=== PATIENT | female | born 1945 | race Caucasian/White ===

== ENCOUNTER 2017-01-25 10:41 | Inpatient (IN) ==
--- NOTE | 2017-01-25 11:10 | Anesthesia Evaluation PreOp ---
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) Anesthesia History: No Prior Anesthetic Complications, Past Anesthesia (Right TSA and TKA, left EDIN, right CEA, Left subclavian BPG, catatacts) : No Alcohol Use: heavy Drug use: none, other Medications and Allergies Albuterol Sulfate [Albuterol Inhaler] 2 puff IH Q4HR PRN 01/14/15 [History] Aspirin 81 mg PO DAILY 01/14/15 [History] BuPROPion XL (24 HR) [Wellbutrin Xl] 150 mg PO DAILY 01/14/15 [History] Clopidogrel [Plavix] 75 mg PO DAILY 01/14/15 [History] Gabapentin [Neurontin] 800 mg PO QPM 01/14/15 [History] Montelukast [Singulair] 10 mg PO DAILY 01/14/15 [History] Nitroglycerin 0.4 mg SL Q5MIN PRN 01/14/15 [History] Oxygen 2 l NS HS 01/14/15 [History] Paroxetine [Paxil] 40 mg PO DAILY 01/14/15 [History] Cholecalciferol (Vitamin D3) [Vitamin D3] 5,000 unit PO DAILY 09/09/15 [History] Atorvastatin Calcium [Lipitor] 80 mg PO DAILY 10/07/15 [History] Calcium/Magnesium/Vit D3 [Calcium 500 mg Tablet] 1 each PO DAILY 10/07/15 [ History] Folic Acid 0.8 mg PO DAILY 10/07/15 [History] Metoprolol [Lopressor] 25 mg PO BID 10/07/15 [History] Oxybutynin [Ditropan] 5 mg PO BID 10/07/15 [History] Vitamin E Acid Succinate [Vitamin E] 400 units PO DAILY 10/07/15 [History] Acetaminophen [Tylenol] 1,000 mg PO Q6HR PRN #90 tablet 12/27/16 [Rx] Meloxicam [Meloxicam] 15 mg PO DAILY 01/11/17 [History] Tiotropium [Spiriva] 1 puff IH DAILY 01/11/17 [History] Varenicline Tartrate [Chantix] 1 mg PO BID 01/11/17 [History] Fluticasone/Salmeterol [Advair 500-50 Diskus] 1 puff IH BID 01/25/17 [History] 3 Allergy/AdvReac Type Severity Reaction Status Date / Time No Known Allergies Allergy Verified 01/11/17 07:40 - Meds/Allergy Pre-op Review Medications Reviewed: Yes Allergies Reviewed: Yes Beta Blockers on Current Med List: Yes If Beta Blockers taken, Date/Time (Last Dose taken): yesterday 1400 Anesthesia Results - Labs Laboratory Tests 12/25/16 12/25/16 12/25/16 18:20 18:20 18:20 Hgb 14.8 Hct 43.4 Plt Count 286 PT 11.0 INR 1.0 APTT 28.1 Sodium 134 L Potassium 4.3 BUN 17 Creatinine 0.75 - Imaging EKG: report reviewed (SINUS BRADYCARDIA LEFT VENTRICULAR HYPERTROPHY AND ST-T CHANGE) Additional studies: carotid studies:The right carotid artery has minimal plaque throughout. The left internal carotid artery has a 80-99% stenosis. Anesthesia Exam Selected Entries 01/25/17 11:17 Temperature 97.6 F Pulse Rate 84 Respiratory Rate 18 Blood Pressure 116/77 O2 Sat by Pulse Oximetry 95 Weight: 73kg NPO (# of Hours): 8 Pain Scale: 4 Pain Scale Used: Numeric (1 - 10) - HEENT Pupil (Motor): EOMI Mallampati: II Teeth: Edentulous Oral Opening: Greater than 3 - OCCUPATIONAL THERAPY CO DIRECTOR LOC: Oriented OCCUPATIONAL THERAPY CO DIRECTOR Motor: Normal RUE, Normal LUE, Normal RLE, Normal LLE, Normal Face OCCUPATIONAL THERAPY CO DIRECTOR Sensory: Normal: RUE, LUE, RLE, LLE, Face - Cardiac Rhythm: Regular Murmur: None - Pulmonary Breath Sounds: bilateral Clear Respiratory Effort: Symmetrical Anesthesia Assess/Plan ASA Score: 3 Modified Avery Scale for Level of Consciousness: Cooperative, oriented, and tranquil Anesthetic Plan: General Autologous Blood: Yes Monitoring Plan: Standard Monitors, A-Line (possible) Recovery Plan: PACU (Discussed risks of GA, potential need for a-line. Questions answered and agrees to proceed.)
[2017-01-25] MEDS ORDERED: Lidocaine -MPF 1% 2 ML VIAL ID ONE (11:14)
[2017-01-25] MEDS ORDERED: CeFAZolin Pre 2,000 MG/100 ML 2,000 MG/100 ML BAG IVPB ONE (11:14)
[2017-01-25] MEDS ORDERED: Vancomycin 1,000 MG in D5% in Water 250 ML IVPB ONE ×2 (11:14→23:00)
[2017-01-25] MEDS ORDERED: Albuterol 2.5 MG/3 ML NEBULIZER IH ONE (11:17)
[2017-01-25] MEDS ORDERED: Ringers Solution, Lactated 1,000 ML IVC SCH (11:30)
--- NOTE | 2017-01-25 11:47 | History & Physical Report ---
Date of Encounter: 01/25/17 Time of Encounter: 11:40 24 Hour HP Update - Instructions Instructions: If the History and Physical is less than 30 days old and was completed prior to A.M. admission and or procedure and has NOT been updated on calendar day of procedure please complete this update prior to performing procedure. - Update Patient reports changes in Medical Condition: No Changes in examination, assessment, or condition: No Changes in Medication: No Preop tests/diagnostics Reviewed: Yes Surgery Remains Indicated: Yes Consent for Planned Operative Procedure(s) Verified: Yes - Pre-Operative Checklist Preoperative Checklist Indicated: Yes Prophylactic Antibiotic Ordered: Yes (Vancomycin due to MRSA risk) Home Medications Include Beta Ham: Yes Beta Ham Taken Today (Day of Surgery): Yes Beta Ham Taken Yesterday (Day Prior to Surgery): Yes Is VTE Prophylaxis Indicated?: Yes
[2017-01-25] MEDS ORDERED: Ondansetron 4 MG/2 ML VIAL IVP ONE (13:13)
[2017-01-25] MEDS ORDERED: *HR* Morphine 2 MG/ML SYRINGE IVP PRN ×2 (13:13→16:21)
[2017-01-25] MEDS ORDERED: *HR* Rocuronium Bromide 50 MG/5 ML VIAL ONE (13:38)
[2017-01-25] MEDS ORDERED: EPHEDrine 50 MG/ML VIAL ONE (13:38)
[2017-01-25] MEDS ORDERED: Lidocaine -MPF 4% 5 ML AMPUL ONE (13:38)
[2017-01-25] MEDS ORDERED: Ondansetron 4 MG/2 ML VIAL ONE (13:38)
[2017-01-25] MEDS ORDERED: *HR* Succinylcholine 200 MG/10 ML VIAL IVP ONE (13:38)
[2017-01-25] MEDS ORDERED: *HR* Phenylephrine 10 MG/ML VIAL ONE (13:38)
[2017-01-25] MEDS ORDERED: Dexamethasone 4 MG/ML VIAL ONE (13:38)
[2017-01-25] MEDS ORDERED: Lidocaine -MPF 2% 2 ML VIAL ONE (13:38)
[2017-01-25] MEDS ORDERED: *HR* FentaNYL (PF) 100 MCG/2 ML VIAL ONE (13:39)
[2017-01-25] MEDS ORDERED: *HR* Propofol 200 MG/20 ML VIAL IVP ONE (13:39)
[2017-01-25] MEDS ORDERED: Heparin 1,000 UNITS/500 mL NS 500 ML ONE (14:34)
[2017-01-25] MEDS ORDERED: Ipratropium/Albuterol Neb 3 ML ONE (14:40)
[2017-01-25] MEDS ORDERED: Ipratropium/Albuterol Neb 3 ML IH ONE (14:43)
--- NOTE | 2017-01-25 15:02 | Operative Note ---
Date of procedure: 01/25/17 Pre-op diagnosis: Peripheral vascular disease Post-op diagnosis: same Procedure: 1. Angiogram via right common femoral artery. 2. Right common iliac artery 7 x 27mm stent placement. 3. Right common femoral artery endarterectomy with bovine pericardial patch angioplasty. 4. Right deep femoral artery endarterectomy. Anesthesia: GETA Surgeon: Aroldo Puri Estimated blood loss (cc): 100 Specimen: right lower extremity plaque Condition: stable Disposition: PACU Procedure in Detail: Indications: The patient is a 71 year old female with a history of peripheral vascular disease with severe disabling claudication.. She was found to have severe right iliac and femoral artery disease. Procedure: The patient was identified in the preoperative area. The risks, benefits, and alternatives of procedure were discussed and all questions were answered. She was taken to the operating room and placed in supine position on the operating room table. After the induction of general endotracheal anesthesia, she was cleaned and draped in normal sterile fashion. An oblique incision was made in the right groin sharply. Hemostasis was obtained with electrocautery. Through a process of blunt and sharp electrocautery dissection , the skin and subcutaneous tissues were incised and the right distal iliac, common femoral, deep femoral and superficial femoral arteries were dissected cicumferentially and surrounded with vessel loops. The patient received 5000 units of heparin intravenously and additional heparin throughout the case to maintain adequate anticoagulation. The vessels were occluded by applying tension to the vessel loops. A longitudinal ateriotomy was made into the common femoral artery. It was extended proximally into the right external iliac artery. A wire was advanced along the plaque proximally into the the right external iliac artery. A 6 kiswahili sheath was advanced over the wire. Using a berenstain catheter, the wire was advanced through the right common iliac artery and into the aorta. The catheter was advanced into the aorta and the wire was removed. An angiogram revealed that the right extrenal iliac lesion had been crossed and the catheter was within the aortic lumen. Additional images were obtained for stent sizing. The catheter was removed and a 7 x 27mm stent was advanced over the wire and deployed across the common iliac artery lesion. A completion angiogram revealed no residual stenosis. The wire and sheath were removed and the vessel was flushed. A strong pulse was noted proximally, but the plaque obstructed flow. Using a dental [place], a standard endarterectomy was performed along the common femoral artery. Release of the deep femoral vessel loop revealed signficant stenosis in the proximal deep femoral artery with minimal retrograde flow. An endarterectomy of the proximal deep femoral artery was perforemd with a dental freer. Proximal and distal endpoints were inspected. No elevated flaps were noted. Brisk retrograde flow was then noted from the deep femoral artery. A bovine pericardial patch was cut to fit the arterial defect and sutured in place with running 6-0 Prolene. Prior to completing the patch anastomosis, each vessel was flushed individually, then reoccluded. Heparinized saline was infused into the lumen. The patch was completed and flow was restored. A firm right inguinal lymph node was excised and sent to pathology. Thrombin and Gelfoam were used to aid in hemostasis. Polyphasic signal was noted distal to the distal end of the patch as well as the posterior tibial artery. Wound was irrigated with antibiotic-containing saline. Platelet-rich and platelet-poor plasma were infused into the wound. The wounds were reapproximated with layer of 2-0 Vicryl followed by two layers of 3-0 and Vicryl 3-0 Monocryl in the subcuticular layer. Sterile dressings were applied. The patient was extubated, taken to recovery room in stable condition.
--- NOTE | 2017-01-25 15:11 | Anesthesia Evaluation Post Op ---
Date of Encounter: 01/25/17 Time of Encounter: 15:10 - Vital Signs Vital Signs: Selected Entries 01/25/17 14:29 01/25/17 14:49 Temperature 97.1 F L Pulse Rate 93 Respiratory Rate 17 Blood Pressure 100/83 O2 Sat by Pulse Oximetry 93 Oxygen Flow Rate (LPM) 2 - Lungs Lungs: Wheezes, Treatment Ordered (Improved with duoneb therapy) - Airway Airway: Non-obstructed - Cardiovascular Regular Rate - Mental Status Mental Status: Alert & Oriented, Answers Appropriately - Nausea Vomiting Nausea Vomiting: Not Present - Hydration Hydration: NPO - Discharge PostOp Status: Transfer Patient to floor
[2017-01-25] MEDS ORDERED: *HR* HYDROcodone/Acet 5/325 mg TABLET PO PRN (16:21)
[2017-01-25] MEDS ORDERED: Acetaminophen 325 MG TABLET PO PRN (16:21)
[2017-01-25] MEDS ORDERED: Nitroglycerin 0.4 MG TAB.SUBL SL PRN (16:21)
[2017-01-25] MEDS ORDERED: *HR* Labetalol 20 MG/4 ML SYRINGE IVP PRN (16:21)
[2017-01-25] MEDS ORDERED: Naloxone 0.4 MG/ML INJ IVP PRN (16:21)
[2017-01-25] MEDS ORDERED: Ondansetron 4 MG/2 ML VIAL IVP PRN (16:21)
[2017-01-25] MEDS ORDERED: *HR* OxyCODONE Immed Rel 5 MG TABLET PO PRN (16:21)
[2017-01-25] MEDS ORDERED: 0.9 % Sodium Chloride 500 ML IVC ONE (16:22)
[2017-01-25] MEDS ORDERED: 0.9 % Sodium Chloride 1,000 ML IVC SCH (16:30)
[2017-01-25] MEDS ORDERED: 0.9 % Sodium Chloride 500 ML ONE (16:30)
[2017-01-25] MEDS: *HR* Metoprolol 5 MG/5 ML VIAL IVP SCH (17:36)
[2017-01-25] MEDS ORDERED: Gabapentin 400 MG CAPSULE PO SCH (18:00)
[2017-01-25] MEDS ORDERED: *HR* Heparin 5,000 UNIT/ML VIAL SQ SCH (18:00)
[2017-01-25] MEDS: ceFAZolin 2,000 MG in D5% in Water 100 ML IVPB SCH (18:28)
[2017-01-25] MEDS: Budesonide/Formoterol 160/4.5 MDI IH SCH (22:28)
[2017-01-26] MEDS: *HR* Metoprolol 5 MG/5 ML VIAL IVP SCH ×2 (00:29→06:12)
[2017-01-26] MEDS: ceFAZolin 2,000 MG in D5% in Water 100 ML IVPB SCH (03:53)
[2017-01-26 05:13] LABS: Basophils % 0.2 %; Eosinophils % 0.1 %; Hematocrit 31.1 % (35.3-44.9); Hemoglobin 10.1 g/dL (11.5-15.4); Immature Granulocytes % 0.7 % (0-4); Lymphocytes # 0.8 K/mcL (0.6-4.6); Lymphocytes % 7.6 %; Mean Corpuscular HGB Conc 32.5 g/dL (31.6-35.5); Mean Corpuscular Volume 95.4 fL (83.0-100.0); Mean Platelet Volume 9.1 fL (9.4-12.4); Monocytes # 0.5 K/mcL (0.0-1.3); Monocytes % 4.8 %; Neutrophils # 8.7 K/mcL (1.6-8.9); Platelet Count 237 K/mcL (140-400); Red Blood Count 3.26 M/mcL (3.82-4.97); Red Cell Distribution Width 13.2 % (11.5-14.5); Segmented Neutrophils % 86.6 %
[2017-01-26 05:24] LABS: BUN/Creatinine Ratio 19 (6-26); Blood Urea Nitrogen 14 mg/dL (7-20); Calcium 8.4 mg/dL (8.6-10.8); Carbon Dioxide 25 mEq/L (19-29); Chloride 102 mEq/L (98-109); Glucose 126 mg/dL (70-99); Osmolality,Calculated 284 (280-300); Potassium 4.7 mEq/L (3.5-4.5); Sodium 136 mEq/L (136-145); eGFR For African Americans > 60 (> 60); eGFR For Non-African Americans > 60 (> 60)
[2017-01-26] MEDS ORDERED: *HR* Heparin 5,000 UNIT/ML VIAL SQ SCH (06:00)
--- NOTE | 2017-01-26 06:24 | Discharge Summary ---
Date of Encounter: 01/26/17 Time of Encounter: 07:20 - Discharge Diagnosis (1) Atheroscler of [place] artery of both legs with intermit claudication Priority: Primary Status: Chronic Comments: The patient is postoperative day #1 after a right iliac stent and femoral endarterectomy. She reports that she is feeling much better and her claudication has resolved. She has polyphasic signals. Her wounds is healing. She will be discharged today. (2) Hyperlipidemia Priority: Secondary Status: Chronic Comments: She was counseled regarding atherosclerotic risk factor reduction. Qualifiers: Hyperlipidemia type: mixed hyperlipidemia Qualified Code(s): E78.2 - Mixed hyperlipidemia (3) COPD (chronic obstructive pulmonary disease) Priority: Secondary Status: Chronic Qualifiers: COPD type: COPD with acute exacerbation Qualified Code(s): J44.1 - Chronic obstructive pulmonary disease with (acute) exacerbation (4) Tobacco abuse Priority: Secondary Status: Chronic (5) Aneurysm of infrarenal abdominal aorta Priority: Secondary Status: Chronic (6) Essential hypertension Priority: Secondary Status: Acute (7) Acute blood loss anemia Priority: Secondary Status: Acute Comments: The patient has acute expected postoperative blood loss anemia. She is hemodynamically stable without evidence of ongoing blood loss. - Discharge Medications Prescriptions: OxyCODONE/APAP 5/325 [Percocet 5/325 MG] 1 each PO Q6HR PRN #25 tablet PRN Reason: postoperative pain Home Medications: Albuterol Sulfate [Albuterol Inhaler] 2 puff IH Q4HR PRN 01/14/15 [History] Aspirin 81 mg PO DAILY 01/14/15 [History] BuPROPion XL (24 HR) [Wellbutrin Xl] 150 mg PO DAILY 01/14/15 [History] Clopidogrel [Plavix] 75 mg PO DAILY 01/14/15 [History] Gabapentin [Neurontin] 800 mg PO QPM 01/14/15 [History] Montelukast [Singulair] 10 mg PO DAILY 01/14/15 [History] Nitroglycerin 0.4 mg SL Q5MIN PRN 01/14/15 [History] Oxygen 2 l NS HS 01/14/15 [History] Paroxetine [Paxil] 40 mg PO DAILY 01/14/15 [History] Cholecalciferol (Vitamin D3) [Vitamin D3] 5,000 unit PO DAILY 09/09/15 [History] Atorvastatin Calcium [Lipitor] 80 mg PO DAILY 10/07/15 [History] Calcium/Magnesium/Vit D3 [Calcium 500 mg Tablet] 1 each PO DAILY 10/07/15 [ History] Folic Acid 0.8 mg PO DAILY 10/07/15 [History] Metoprolol [Lopressor] 25 mg PO BID 10/07/15 [History] Oxybutynin [Ditropan] 5 mg PO BID 10/07/15 [History] Vitamin E Acid Succinate [Vitamin E] 400 units PO DAILY 10/07/15 [History] Acetaminophen [Tylenol] 1,000 mg PO Q6HR PRN #90 tablet 12/27/16 [Rx] Meloxicam 15 mg PO DAILY 01/11/17 [History] Tiotropium [Spiriva] 1 puff IH DAILY 01/11/17 [History] Varenicline Tartrate [Chantix] 1 mg PO BID 01/11/17 [History] Fluticasone/Salmeterol [Advair 500-50 Diskus] 1 puff IH BID 01/25/17 [History] OxyCODONE/APAP 5/325 [Percocet 5/325 MG] 1 each PO Q6HR PRN #25 tablet 01/26/17 [Rx] Allergies/Adverse Reactions: 3 Allergy/AdvReac Type Severity Reaction Status Date / Time No Known Allergies Allergy Verified 01/11/17 07:40 Date of admission: 01/25/17 11:48 Primary care physician: Darwin Bolton MD Procedure(s) Performed: Right iliac stent and right femoral endarterectomy. Discharging clinician: Aroldo Puri Anticipated date of discharge: 01/26/17 - Patient Status Disposition: Home, Self-Care Condition: Good Functional capacity at discharge: independent ambulation Overall status at discharge: patient is back to baseline - Discharge Instructions Instructions: Oxycodone/Acetaminophen (By mouth), Peripheral Vascular Stent Placement (DC), Cigarette Smoking and Your Health, Intake Assessor (GEN) Follow Up With: Aroldo Puri MD [Partnered Physician] - 03/12/17 11:00 am Darwin Bolton MD [Primary Care Provider] - 01/30/17 11:30 am Additional Instructions: May remove bandage and shower on 01/27/17. Wash wound gently and pat to dry. Apply dry gauze to wound daily for 7 days. No tub baths or swimming until 02/18/17. Call Dr. Puri at [phone] with questions or concerns. - CONTINUE TO CHECK YOUR HR AND BP AT HOME BEFORE AM MEDS ARE GIVEN. AND FOLLOW PARAMETERS ON HOME DOSE METOPROLOL. - SPLINT RIGHT GROIN WHEN COUGHING, SNEEZING, LAUGHING, STRAINING. - CONTINUE TO USE THE INCENTIVE SPIROMETER 6 TIMES A DAY (10 BREATHS EACH MARCY) TO PREVENT PNEUMONIA. - NO LIFTING MORE THAN 10 POUNDS/ 1 GALLON OF MILK. - LOW FAT LOW SALT LOW CHOLESTEROL DIET IS RECOMMENDED. - Diet and Activity Activity: increase activity as tolerated Diet: advance to your usual diet - Hospital Course Hospital course: Ms. Paz is a 71 year old female with a history of hypertension, hyperlipidemia, tobacco abuse and peripheral vascular disease with disabling claudication. She underwent a right iliac stent and femoral endarterectomy. She tolerated the procedure well and was discharged on postoperative day #1 without complication. Time spent discussing smoking cessation with patient: 3 to 10 minutes - Time Spent with Patient Total time spent providing and/or coordinating discharge services: Exam Vital Signs, Last 4 Hours Temp Pulse Resp BP Pulse Ox 01/26/17 03:35 97.8 F 85 19 85/66 98 General: Present: Conversant, No Apparent Distress HEENT: Present: Pupils equal Cardiac: Present: Reg Rate and Rhythm Lungs: Present: Normal Breath Sounds Neuro: Present: Alert and responsive, No focal deficits noted Abdomen: Present: Soft Vascular: Present: Normal capillary refill, Pulse, normal. Absent: Cyanosis, Edema - VTE Documentation of Mechanical Device: Graduated compression elastic hosiery
[2017-01-26 07:13] VITALS: BP 85/60
[2017-01-26] MEDS: Budesonide/Formoterol 160/4.5 MDI IH SCH (08:17)
[2017-01-26] MEDS ORDERED: Folic Acid 1 MG TABLET PO SCH (09:00)
[2017-01-26] MEDS ORDERED: Tiotropium 18 MCG inhalation IH SCH (09:00)
[2017-01-26] MEDS ORDERED: Cholecalciferol (D-3) 1,000 UNIT TABLET PO SCH (09:00)
[2017-01-26] MEDS ORDERED: BuPROPion XL (24 HR) 150 MG TABLET PO SCH (09:00)
[2017-01-26] MEDS ORDERED: Aspirin 81 MG TAB.CHEW PO SCH (09:00)
== END 2017-01-26 10:17 | disposition home or self-care (01) | DRG 253 ==
LOC: SAMDAY 10:41 → 2NNU 11:48
PROVIDERS: ADMIT Surgery; ATTEND Surgery

== ENCOUNTER 2017-04-06 16:43 | Inpatient (IN) ==
[2017-04-06] MEDS ORDERED: methylPREDNISolone 125 MG/2 ML VIAL IVP ONE (16:57)
[2017-04-06] MEDS ORDERED: Ipratropium/Albuterol Neb 3 ML IH ONE ×2 (16:57→16:59)
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
[2017-04-06] MEDS ORDERED: Levalbuterol Neb 1.25 MG/3 ML IH ONE (17:12)
[2017-04-06 17:18] LABS: Basophils # 0.1 K/mcL (0.0-0.2); Basophils % 0.5 %; Eosinophils # 0.1 K/mcL (0.0-0.6); Eosinophils % 0.4 %; Hematocrit 41.4 % (35.3-44.9); Hemoglobin 13.3 g/dL (11.5-15.4); Immature Granulocytes % 3.1 % (0-4); Lymphocytes % 5.7 %; Mean Corpuscular HGB Conc 32.1 g/dL (31.6-35.5); Mean Corpuscular Hemoglobin 31.1 pg (28.0-33.3); Mean Corpuscular Volume 96.7 fL (83.0-100.0); Mean Platelet Volume 8.9 fL (9.4-12.4); Monocytes # 0.5 K/mcL (0.0-1.3); Monocytes % 2.9 %; Neutrophils # 14.8 K/mcL (1.6-8.9); Nucleated Red Blood Cells 0.1 /100 WBC (0); Platelet Count 305 K/mcL (140-400); Red Blood Count 4.28 M/mcL (3.82-4.97); Red Cell Distribution Width 14.8 % (11.5-14.5); Segmented Neutrophils % 87.4 %
[2017-04-06] MEDS: dilTIAZem HCl 100 MG in D5% in Water 50 ML IVC SCH ×2 (17:26→23:51)
[2017-04-06 17:35] LABS: ABG Base Excess 4 mEq/L (-2 to 3); ABG HCO3 28 mEq/L (21-27); ABG Oxygen Saturation 80 % (95-98); ABG PCO2 41 mmHg (35-45); ABG PH 7.44 pH Units (7.32-7.45); ABG PO2 43 mmHg (85-104); ABG TCO2 29 mEq/L (20-26)
[2017-04-06] MEDS ORDERED: 0.9 % Sodium Chloride 1,000 ML IVC ONE (17:35)
[2017-04-06] MEDS ORDERED: Piperacillin/Tazobactam 3.375 GM in D5% in Water 50 ML IVPB ONE (17:45)
[2017-04-06 17:51] LABS: BUN/Creatinine Ratio 25 (6-26); Blood Urea Nitrogen 23 mg/dL (7-20); Calcium 9.4 mg/dL (8.6-10.8); Carbon Dioxide 27 mEq/L (19-29); Chloride 104 mEq/L (98-109); Glucose 154 mg/dL (70-99); Osmolality,Calculated 299 (280-300); Potassium 4.8 mEq/L (3.5-4.5); Sodium 141 mEq/L (136-145); eGFR For African Americans > 60 (> 60); eGFR For Non-African Americans 60 (> 60)
[2017-04-06] MEDS ORDERED: 0.9 % Sodium Chloride 500 ML IVC ONE (18:18)
[2017-04-06] MEDS ORDERED: *HR* Heparin 5,000 UNIT/ML VIAL IVP ONE (18:29)
[2017-04-06] MEDS ORDERED: *HR* Heparin 5,000 UNIT/ML VIAL IVP PRN ×2 (18:29)
[2017-04-06] MEDS ORDERED: Heparin 25,000 UNIT/500 ML D5W 25,000 UNIT/500 ML MLS IVC SCH (18:30)
[2017-04-06 18:47] LABS: Activated Partial Thrombo Time 23.1 Seconds (26.0-36.0)
[2017-04-06] MEDS ORDERED: Furosemide 40 MG/4 ML VIAL IVP ONE (19:33)
[2017-04-06] MEDS ORDERED: Furosemide 40 MG/4 ML VIAL ONE (19:36)
[2017-04-06] MEDS ORDERED: *HR* Metoprolol 5 MG/5 ML VIAL IVP ONE (20:01)
[2017-04-06] MEDS: *HR* Metoprolol 5 MG/5 ML VIAL IVP SCH (20:25)
[2017-04-06] MEDS ORDERED: Naloxone 0.4 MG/ML INJ IVP PRN (20:33)
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
[2017-04-06] MEDS ORDERED: *HR* Morphine 2 MG/ML SYRINGE IVP PRN (20:49)
[2017-04-06] MEDS ORDERED: *HR* HYDROcodone/Acet 5/325 mg TABLET PO PRN (20:49)
[2017-04-06] MEDS ORDERED: Acetaminophen 325 MG TABLET PO PRN (20:49)
[2017-04-06] MEDS ORDERED: Nitroglycerin 0.4 MG TAB.SUBL SL PRN (20:53)
[2017-04-06] MEDS: Ipratropium/Albuterol Neb 3 ML IH SCH (21:56)
[2017-04-06] MEDS: *HR* Heparin 5,000 UNIT/ML VIAL SQ SCH (23:26)
[2017-04-06] MEDS: Gabapentin 400 MG CAPSULE PO SCH (23:31)
[2017-04-07 00:23] LABS: ABG Base Excess 7 mEq/L (-2 to 3); ABG HCO3 32 mEq/L (21-27); ABG Oxygen Saturation 97 % (95-98); ABG PCO2 44 mmHg (35-45); ABG PH 7.46 pH Units (7.32-7.45); ABG PO2 91 mmHg (85-104); ABG TCO2 33 mEq/L (20-26); Blood Gas Respiration Rate 8
[2017-04-07 05:26] LABS: Basophils % 0.2 %; Hematocrit 39.2 % (35.3-44.9); Hemoglobin 12.5 g/dL (11.5-15.4); Immature Granulocytes % 1.6 % (0-4); Immature Platelets 2.8 % (1.1-6.1); Lymphocytes # 0.7 K/mcL (0.6-4.6); Lymphocytes % 8.1 %; Mean Corpuscular HGB Conc 31.9 g/dL (31.6-35.5); Mean Corpuscular Hemoglobin 30.9 pg (28.0-33.3); Mean Corpuscular Volume 96.8 fL (83.0-100.0); Monocytes # 0.2 K/mcL (0.0-1.3); Monocytes % 1.9 %; Platelet Count 267 K/mcL (140-400); Red Blood Count 4.05 M/mcL (3.82-4.97); Red Cell Distribution Width 14.6 % (11.5-14.5); Segmented Neutrophils % 88.2 %
[2017-04-07 05:38] LABS: BUN/Creatinine Ratio 26 (6-26); Blood Urea Nitrogen 21 mg/dL (7-20); Carbon Dioxide 32 mEq/L (19-29); Chloride 101 mEq/L (98-109); Glucose 139 mg/dL (70-99); Magnesium 2.3 mg/dL (1.6-2.6); Osmolality,Calculated 299 (280-300); Phosphorous 3.7 mg/dL (2.3-4.7); Potassium 4.7 mEq/L (3.5-4.5); Sodium 142 mEq/L (136-145); eGFR For African Americans > 60 (> 60); eGFR For Non-African Americans > 60 (> 60)
[2017-04-07] MEDS: Ipratropium/Albuterol Neb 3 ML IH SCH ×4 (05:54→21:43)
[2017-04-07] MEDS: *HR* Heparin 5,000 UNIT/ML VIAL SQ SCH ×3 (06:28→21:18)
[2017-04-07] MEDS: Furosemide 40 MG/4 ML VIAL IVP SCH ×2 (08:20→18:42)
[2017-04-07] MEDS: Aspirin 81 MG TAB.CHEW PO SCH (08:20)
[2017-04-07] MEDS: BuPROPion XL (24 HR) 150 MG TABLET PO SCH (08:20)
[2017-04-07] MEDS: Gabapentin 400 MG CAPSULE PO SCH ×4 (08:20→21:19)
[2017-04-07] MEDS ORDERED: predniSONE 20 MG TABLET PO SCH (09:00)
--- NOTE | 2017-04-07 09:49 | Internal Med Progress Note ---
<Trent Mckee - Last Filed: 04/07/17 12:41> Date of Encounter: 04/07/17 Time of Encounter: 09:30 - Assessment and plan (1) Atrial fibrillation with RVR Current Visit: Yes Status: Acute Assessment and plan: Continue cardizem drip, wean as tolerated Resume home dose of metoprolol and titrate prn Patient has significant hx of bleeds-GI and brain Will hold further anticoagulation for now ECHO pending Continue ASA and Plavix at home dose Cardiology consulted CHADSVAS is 6 making her high risk for CVA. She is presently taking plavix. HAS BLED score 3 Also reports recent bright red blood per rectum. GI workup pending Consider Neurology evaluation prior to considering full anticoagulation. (2) CHF exacerbation Current Visit: Yes Status: Acute Assessment and plan: Hypertrophic obstructive cardiomyopathy CXR with pulmnary edema, patient is hypoxic, BNP 1600, elevated troponin IV lasix 80mg given STAT Continue lasix 40mg BID IV Possibly due to afib with RVR Trend troponin 08/14/15 echo revealed hyperdynamic LV systolic function with EF 75%, severe LVH , dynamic LVOT obstruction ECHO pending Strict I/O place [place] Fluid restriction Daily weights Cardio consulted She is on metoprolol - blood pressure would probably not tolerate up titration. May consider the addition of disopyramide which may also be beneficial in setting of AFIB. Qualifiers: Congestive heart failure type: unspecified congestive heart failure type Qualified Code(s): I50.9 - Heart failure, unspecified (3) Acute and chronic respiratory failure with hypoxia Current Visit: Yes Status: Acute Assessment and plan: Acute on chronic hypoxia, severe with respiratory distress and SpO2 75% prior to arrival Multifactorial: CHF and COPD exacerbation, pulmonary edema Improved with BIPAP Continue BiPAP Repeat ABG improved High risk for invasive ventilation if no improvement patient is full code (4) Acute exacerbation of chronic obstructive airways disease Current Visit: Yes Status: Acute Assessment and plan: Continue duonebs, prednsione Levaquin IV CXR reveals new oval-shaped opacity in the left mid lung. Findings may represent focal fluid CT chest ordered to evaluate for underlying lesion. (5) Elevated troponin Current Visit: Yes Status: Acute Assessment and plan: Possibly from demand ischemia , due to hypoxia, Afib with RVR Follow ECHO Serial troponin 0.08 --> 0.06 --> 0.05 Heparin drip discontinued Cardiology consulted (6) CAD (coronary artery disease) Current Visit: Yes Status: Chronic Assessment and plan: Continue home meds, follow ECHO Qualifiers: Coronary Disease-Associated Artery/Lesion type: [place] artery [place] vs. transplanted heart: [place] heart Associated angina: without angina Qualified Code(s): I25.10 - Atherosclerotic heart disease of [place] coronary artery without angina pectoris (7) Status post carotid endarterectomy Current Visit: Yes Status: Chronic Assessment and plan: Continue home meds (8) Essential hypertension Current Visit: Yes Status: Chronic Assessment and plan: Controlled, continue current meds (9) Hyperlipidemia Current Visit: Yes Status: Chronic Assessment and plan: Continue home meds Qualifiers: Hyperlipidemia type: unspecified Qualified Code(s): E78.5 - Hyperlipidemia , unspecified (10) Aneurysm of infrarenal abdominal aorta Current Visit: No Status: Chronic Assessment and plan: 09/09/16 abd U/S revealed small infrarenal abdominal aortic aneurysm measuring 3.2 x 3.4 cm Continue monitoring (11) PAD (peripheral artery disease) Current Visit: Yes Status: Acute Assessment and plan: Peripheral Vascular Disease With Disabling Claudication 12/27/16 angiogram revealed right common iliac artery is occluded and left common iliac artery has a 50% stenosis. (12) Tobacco abuse Current Visit: No Status: Chronic Assessment and plan: Tobacco cessation discussed Nicotine patch ordrered (13) Bright red blood per rectum Current Visit: Yes Status: Acute Assessment and plan: Chronic Fecal occult blood test pending (14) Obesity (BMI 30-39.9) Current Visit: Yes Status: Acute Assessment and plan: She also reports bright red blood on tissue paper after BM for several weeks now. Diet modification and exercise discussed (15) DVT prophylaxis Current Visit: Yes Status: Acute Assessment and plan: Heparin subq TID - Subjective Interval history: Patient seen and examined. Patient reports intermittent left sided CP at rest. Nothing make CP better or worse. Current HR is between 100 and 115 on Cardizem ggt. Patient is requesting coffee this AM but is currently NPO awaiting cardiology evaluation. She reports using a wheelchair at home due to severe [place]. She also reports bright red blood on tissue paper after BM for several weeks now. Daughter is at bedside. - Constitutional Vitals: Temp Pulse Resp BP Pulse Ox 97.5 F L 97 14 108/75 98 04/07/17 06:27 04/07/17 06:25 04/07/17 06:25 04/07/17 06:25 04/07/17 06:25 General appearance: Present: cooperative, A&O X 3, pleasant, no acute distress, obese, answers questions appropriately - Head Head exam: Present: atraumatic, normocephalic - Eye Eye exam: Present: EOMI, PERRL, conjuntiva pink, sclera anicteric Pupils: Present: PERRL - ENT ENT exam: Present: mucous membranes dry, normal oropharynx - Neck Neck exam general surgery: Present: normal inspection, supple, trachea midline. Absent: lymphadenopathy - Respiratory Respiratory exam: Present: wheezes (expiratory). Absent: accessory muscle use, decreased breath sounds, rales, respiratory distress, rhonchi - Cardiovascular Cardiovascular exam: Present: irregular rhythm, +S1, +S2, tachycardia. Absent: diastolic murmur, gallop, rubs, systolic murmur - GI/Abdominal GI/Abdominal exam: Present: normal bowel sounds, soft, no peritoneal signs. Absent: distended, guarding, tenderness - Additional comments: conley - Extremities Exam Extremities exam: Present: warm, radial pulses palpable and symmetrical. Absent : calf tenderness, cyanotic, pedal edema - Back Exam Back exam: Present: normal inspection. Absent: paraspinal tenderness, tenderness - Neurological Exam Neurological exam: Present: CN II-XII intact, oriented X3, no focal deficits. Absent: pronater drift, facial droop, speech deficit - Psychiatric Psychiatric exam: Present: normal affect, normal mood - Skin Skin exam: Present: dry, intact Internal Medicine: Result - Labs CBC & Chem 7: 04/07/17 05:14 04/07/17 05:14 Labs: Short CBC 04/07/17 Range/Units 05:14 WBC 9.1 (4.3-11.1) K/mcL Hgb 12.5 (11.5-15.4) g/dL Hct 39.2 (35.3-44.9) % Plt Count 267 (140-400) K/mcL Neutrophils # 8.0 (1.6-8.9) K/mcL BMP 04/07/17 05:14 Sodium 142 Potassium 4.7 H Chloride 101 Carbon Dioxide 32 H BUN 21 H Creatinine 0.82 Glucose 139 H Calcium 9.0 Cardiac Enzymes 04/06/17 04/07/17 Range/Units 22:52 05:14 Troponin I 0.06 H* 0.05 H* (0-0.03) ng/mL - ABG Interpretation ABG results: ABG ABG pH 7.46 pH Units (7.32-7.45) H 04/07/17 00:17 ABG pCO2 44 mmHg (35-45) 04/07/17 00:17 ABG pO2 91 mmHg (85-104) 04/07/17 00:17 ABG O2 Saturation 97 % (95-98) 04/07/17 00:17 PT/INR, D-dimer PT 11.0 Seconds (9.4-12.1) 04/06/17 17:03 - Pulse Oximetry Interpretation Digit-Finger Pulse Oximetry Readin (on 2L O2 via NC) Actions taken: none Consult Discharge Plan - Plan Referrals: Darwin Bolton MD [Primary Care Provider] - <Jarvis Forman - Last Filed: 04/07/17 12:55> Date of Encounter: 04/07/17 - Constitutional Vitals: Temp Pulse Resp BP Pulse Ox 97.5 F L 121 14 104/74 98 04/07/17 06:27 04/07/17 07:00 04/07/17 09:49 04/07/17 07:00 04/07/17 09:49 Internal Medicine: Result - Labs CBC & Chem 7: 04/07/17 05:14 04/07/17 05:14 Labs: Short CBC 04/07/17 Range/Units 05:14 WBC 9.1 (4.3-11.1) K/mcL Hgb 12.5 (11.5-15.4) g/dL Hct 39.2 (35.3-44.9) % Plt Count 267 (140-400) K/mcL Neutrophils # 8.0 (1.6-8.9) K/mcL BMP 04/07/17 05:14 Sodium 142 Potassium 4.7 H Chloride 101 Carbon Dioxide 32 H BUN 21 H Creatinine 0.82 Glucose 139 H Calcium 9.0 Cardiac Enzymes 04/06/17 04/07/17 Range/Units 22:52 05:14 Troponin I 0.06 H* 0.05 H* (0-0.03) ng/mL - ABG Interpretation ABG results: ABG ABG pH 7.46 pH Units (7.32-7.45) H 04/07/17 00:17 ABG pCO2 44 mmHg (35-45) 04/07/17 00:17 ABG pO2 91 mmHg (85-104) 04/07/17 00:17 ABG O2 Saturation 97 % (95-98) 04/07/17 00:17 PT/INR, D-dimer PT 11.0 Seconds (9.4-12.1) 04/06/17 17:03 - Attending Attestation Chest x-ray showed:Small bilateral pleural effusions. New oval-shaped opacity in the left mid lung. Findings may represent focal fluid however recommend further evaluation with CT to evaluate for underlying lesion. Send CT scan of the chest. Cardiology recommendations appreciated I examined this patient and my medical decision-making was reviewed with the Resident Physician. I agree with the documented findings, disposition and treatment plan as described except to the extent set forth below.
--- NOTE | 2017-04-07 10:40 | Cardiology Consult Note ---
Date of Encounter: 04/07/17 Time of Encounter: 09:20 Assessment and Plan (1) Hypertrophic obstructive cardiomyopathy Current Visit: Yes Status: Acute Patient's most recent echo demonstrated hyperdynamic function, EF 75% with severe concentric hypertrophy and with LVOT obstruction, peak gradient 40 mmHg. Patient denies symptoms of pre-syncope or syncope. Verapamil was previously attempted in August 2015 during admission the patient did not tolerate this medicine. Presently, she is on metoprolol - blood pressure would probably not tolerate uptitration. May consider the addition of disopyramide which may also be beneficial in setting of AFIB. (2) Elevated troponin Current Visit: Yes Status: Acute Troponins are mildly elevated, flat and adynamic representing demand ischemia in the setting of COPD exacerbation. Also looking back, troponins appear to be chronically elevated. (3) Atrial fibrillation with RVR Current Visit: Yes Status: Acute Patient presented with atrial fibrillation with RVR in the setting of a COPD exacerbation. Presently on a Cardizem drip and her home dose of oral metoprolol. Due to low blood pressure, will likely be unable to uptitrate her beta una. May benefit from the addition of disopyramide which we will start. Otherwise, she apparently has a history of intracranial aneurysm per her daughter's report. Documented in her medical history is a subarachnoid bleed in the . Per daughter, outpatient cardiology hesitant to start anticoagulation. CHADSVASC is 6 making her high risk for CVA. She is presently taking plavix. Also reports recent bright red blood per rectum. Recommend GI workup and consider Neurology evaluation prior to considering full anticoagulation. Discussion w patient/family: The assessment and plan as outlined above was discussed with the patient and/or family members who expressed understanding and agreement. All questions were answered. Thank you for involving us in the care of your patient. Please call with any questions. History of Present Illness Consult date: 04/07/17 Requesting physician: Jarvis Forman Consult reason: AFIB Chief complaint: SOB History of present illness: Ms. Paz is a 71 year old female presenting with SOB found to have a COPD exacerbation. On presentation, she was noted to be in atrial fibrillation with RVR and hypoxic with a PO2 of 40. Workup demonstrated small bilateral pleural effusions and a mid focal lung opacity. BNP elevated. Troponins mildly elevated, flat and adynamic. Patient has been diuresed and started on BiPAP. Medical history is significant for CAD and prior coronary stents. She also has a history of hypertrophic obstructive cardiomyopathy being managed by her outpatient trainer who she last saw on November 2016. She states that she had been doing well until recently and has not had chest pain or palpitations. She denies presyncopal symptoms or syncope. Medical history is also significant for a subarachnoid bleed in the . Per daughter, who is at the bedside the hospitalist team is also concerned about a current GI bleed. Past Med Surg Social Fam HX - Past Medical History Attestation: Yes The following information was validated with the patient. Source: old records reviewed Medical history: COPD, coronary artery disease, CVA, hyperlipidemia, hypertension, other Psychiatric history: no psych history - Past Surgical History Surgical History: cataract, hysterectomy, knee replacement, orthopedic, other, other - Social History Smoking Status: Current every day smoker Packs per day: 1-2 cig Smokeless Tobacco Status: No Alcohol use: heavy Drug use: none, other - Family History Brother Adopted: No Family Member Ethnicity: Non- Living Status: Still Living Hx Family Cancer: Yes Hx Family Neuromuscular Disorders: Yes (stroke from clots) Mother Living Status: Age at : 85 Hx Family Cardiac Disorders: Yes Hx Family Cancer: Yes (colon-cause of ) Hx Family Neurologic Disorders: Yes (stroke-clot) Brother Maternal Living Status: Hx Family Cardiac Disorders: Yes (ACS-cause of ) Hx Family Neurologic Disorders: Yes Medications and Allergies Albuterol Sulfate [Albuterol Inhaler] 2 puff IH Q4HR PRN 01/14/15 [History] Aspirin 81 mg PO DAILY 01/14/15 [History] BuPROPion XL (24 HR) [Wellbutrin Xl] 150 mg PO DAILY 01/14/15 [History] Clopidogrel [Plavix] 75 mg PO DAILY 01/14/15 [History] Gabapentin [Neurontin] 800 mg PO QID 01/14/15 [History] Montelukast [Singulair] 10 mg PO QPM 01/14/15 [History] Nitroglycerin 0.4 mg SL Q5MIN PRN 01/14/15 [History] Oxygen 2 l NS AD 01/14/15 [History] Atorvastatin Calcium [Lipitor] 80 mg PO HS 10/07/15 [History] Metoprolol [Lopressor] 25 mg PO BID 10/07/15 [History] Oxybutynin [Ditropan] 5 mg PO BID 10/07/15 [History] Meloxicam 15 mg PO DAILY PRN 01/11/17 [History] Tiotropium [Spiriva] 18 mcg IH DAILY 01/11/17 [History] Fluticasone/Salmeterol [Advair 500-50 Diskus] 1 puff IH BID 01/25/17 [History] Ipratropium/Albuterol Neb [Duoneb] 3 ml IH Q6H PRN 04/06/17 [History] Paroxetine HCl [Paxil] 40 mg PO HS 04/06/17 [History] predniSONE [PredniSONE] See Taper PO DAILY 04/06/17 [History] 3 Allergy/AdvReac Type Severity Reaction Status Date / Time No Known Allergies Allergy Verified 01/11/17 07:40 All Systems Review: A 10-system review of systems was performed and is negative for pertinent findings except as documented above in the HPI. - Cardiovascular Cardiovascular: as per HPI - Respiratory Respiratory: dyspnea, wheezing Physical Examination Vital Signs, Last 4 Hours Pulse Resp BP Pulse Ox 04/07/17 09:49 14 98 04/07/17 07:00 121 104/74 General: Conversant, No Apparent Distress HEENT: Mucus Membranes Moist Neck: No JVD Cardiac: Other (irregularly irregular, 2/6 sysotlic murmur LSB) Lungs: Other (diminished breath sounds bilaterally with audible wheezing) Neuro: Alert and responsive, No focal deficits noted Abdomen: Soft, Other (Normal bowel sounds) Extremities: Other (mild-moderate bilateral LE edema) Results 04/07/17 05:14 04/07/17 05:14 Lab Results 04/06/17 04/07/17 04/07/17 22:52 05:14 05:14 WBC 9.1 Hgb 12.5 Hct 39.2 Plt Count 267 Sodium 142 Potassium 4.7 H Chloride 101 Carbon Dioxide 32 H BUN 21 H Creatinine 0.82 Glucose 139 H Calcium 9.0 Magnesium 2.3 Troponin I 0.06 H* 04/07/17 05:14 WBC Hgb Hct Plt Count Sodium Potassium Chloride Carbon Dioxide BUN Creatinine Glucose Calcium Magnesium Troponin I 0.05 H* - Imaging and Cardiology Chest Xray: report reviewed Echo: report reviewed (Telemetry was reviewed demonstrating average heart rate of 103 bpm in atrial fibrillation without other dysrhythmia) Consult Discharge Plan - Plan Referrals: Darwin Bolton MD [Primary Care Provider] -
[2017-04-07] MEDS: GuaiFENesin/Dextromethorphan TABLET PO SCH ×2 (12:16→21:19)
[2017-04-07] MEDS: Nicotine 14 MG PATCH.TD24 TD SCH (13:26)
[2017-04-07 14:37] LABS: Acinetobacter baumannii by PCR Not Detected (Not Detect); Candida albicans by PCR Not Detected (Not Detect); Candida glabrata by PCR Not Detected (Not Detect); Candida krusei by PCR Not Detected (Not Detect); Candida parapsilosis by PCR Not Detected (Not Detect); Candida tropicalis by PCR Not Detected (Not Detect); Enterococcus by PCR Not Detected (Not Detect); Escherichia coli by PCR Not Detected (Not Detect); Klebsiella oxytoca by PCR Not Detected (Not Detect); Klebsiella pneumoniae by PCR Not Detected (Not Detect); Pseudomonas aeruginosa by PCR Not Detected (Not Detect); Serratia marcescens by PCR Not Detected (Not Detect); Staphylococcus aureus by PCR Not Detected (Not Detect); Streptococcus agalactiae(B)PCR Not Detected (Not Detect); Streptococcus by PCR Not Detected (Not Detect); Streptococcus pneumoniae PCR Not Detected (Not Detect); Streptococcus pyogenes (A) PCR Not Detected (Not Detect); mecA Methicillin-Resist Gene ***DETECTED*** (Not Detect)
[2017-04-07] MEDS ORDERED: Vancomycin 1,250 MG in D5% in Water 250 ML IVPB SCH ×2 (15:00→16:00)
[2017-04-07] MEDS ORDERED: Levofloxacin 750 MG/150 ML 750 MG/150 ML BAG IVPB SCH (16:00)
[2017-04-07] MEDS: MethylPREDNISolone 40 MG/ML VIAL IVP SCH (18:42)
[2017-04-08] MEDS: MethylPREDNISolone 40 MG/ML VIAL IVP SCH ×2 (01:10→08:18)
[2017-04-08] MEDS: Ipratropium/Albuterol Neb 3 ML IH SCH ×4 (03:51→22:20)
[2017-04-08] MEDS: *HR* Heparin 5,000 UNIT/ML VIAL SQ SCH ×3 (04:59→22:02)
[2017-04-08 06:08] LABS: Hematocrit 36.9 % (35.3-44.9); Hemoglobin 11.7 g/dL (11.5-15.4); Mean Corpuscular HGB Conc 31.7 g/dL (31.6-35.5); Mean Corpuscular Hemoglobin 30.8 pg (28.0-33.3); Mean Corpuscular Volume 97.1 fL (83.0-100.0); Mean Platelet Volume 9.1 fL (9.4-12.4); Platelet Count 257 K/mcL (140-400); Red Cell Distribution Width 14.7 % (11.5-14.5)
[2017-04-08 06:42] LABS: Calcium 8.6 mg/dL (8.6-10.8); Potassium 4.5 mEq/L (3.5-4.5)
[2017-04-08] MEDS: Aspirin 81 MG TAB.CHEW PO SCH (08:17)
[2017-04-08] MEDS: Gabapentin 400 MG CAPSULE PO SCH ×3 (08:17→17:00)
[2017-04-08] MEDS: BuPROPion XL (24 HR) 150 MG TABLET PO SCH (08:17)
[2017-04-08] MEDS: GuaiFENesin/Dextromethorphan TABLET PO SCH (08:17)
[2017-04-08] MEDS: Furosemide 40 MG/4 ML VIAL IVP SCH (08:18)
[2017-04-08] MEDS: Nicotine 14 MG PATCH.TD24 TD SCH (08:18)
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
[2017-04-08] MEDS ORDERED: Aminoglycoside Consult 1 EACH MC ONE (11:47)
[2017-04-08] MEDS ORDERED: MethylPREDNISolone 40 MG/ML VIAL IVP SCH (13:30)
[2017-04-08] MEDS ORDERED: 0.9 % Sodium Chloride 1,000 ML IVC SCH ×2 (13:30→19:36)
[2017-04-08] MEDS ORDERED: Cefepime HCl 1,000 MG in Water for inj. (sterile) 10 ML IVP SCH (14:00)
[2017-04-08] MEDS ORDERED: Cefepime HCl 1,000 MG in D5% in Water (Mini-Bag+) 100 ML IVPB SCH (14:00)
--- NOTE | 2017-04-08 15:00 | Cardiology Progress Note ---
Date of Encounter: 04/08/17 Time of Encounter: 09:15 Assessment and Plan (1) Hypertrophic obstructive cardiomyopathy Current Visit: Yes Status: Acute Patient's echo in 2016 demonstrated hyperdynamic function, EF 75% with severe concentric hypertrophy and with LVOT obstruction, peak gradient 48 mmHg. I reviewed patient's echo during this hospitalization which demonstrates severe concentric hypertrophy. The LVOT Doppler interrogation was suboptimal to evaluate for obstruction. Patient denies recent symptoms of pre-syncope or syncope. Verapamil was previously attempted in August 2015 during admission the patient did not tolerate this medicine. Presently, she is on metoprolol - blood pressure would probably not tolerate uptitration (doses are being intermittently held by nursing). We have added disopyramide to her medical regimen which may also benefit her atrial dysrhythmia. (2) Elevated troponin Current Visit: Yes Status: Acute Troponins are mildly elevated, flat and adynamic representing demand ischemia in the setting of COPD exacerbation. Also looking back, troponins appear to be chronically elevated. No further intervention required at this time. (3) Atrial fibrillation with RVR Current Visit: Yes Status: Acute Patient presented with atrial fibrillation with RVR in the setting of a COPD exacerbation, possible community acquired pneumonia and bacteremia. Telemetry demonstrates average heart rate low 100s which is acceptable. Due to low blood pressure, will likely be unable to uptitrate her beta una. Disopyramide was added yesterday to her medical regimen. Previously, she did not tolerate verapamil. Suspect that heart rates will normalize and patient may return to normal rhythm once the underlying cause of infection improves and resolves. In regards to anticoagulation, aspirin is recommended at this time until GI workup is complete for concern regarding bright red blood per rectum and patient has a neurologic evaluation prior to considering full anticoagulation given her history of intracranial aneurysm and a documented subarachnoid bleed in the . Patient is also hesitant to start anticoagulation due to this history. She does understand that she has an elevated CHADSVASC risk score for CVA in the setting of atrial fibrillation. Discussion w patient/family: The assessment and plan as outlined above was discussed with the patient and/or family members who expressed understanding and agreement. All questions were answered. Thank you for involving us in the care of your patient. Please call with any questions. Subjective Principal diagnosis: AFIB Interval history: Ms. Paz feels better today reporting an improvement in breathing. She has no new symptoms to report. Denies chest pain. Not feeling palpitations. Objective Vital signs for the last 24 hours were reviewed. General: Conversant, No Apparent Distress HEENT: Mucus Membranes Moist Neck: No JVD Cardiac: Other (Irregularly irregular, 2/6 systolic murmur left sternal border) Lungs: Other (Diminished breath sounds) Neuro: Alert and responsive, No focal deficits noted Abdomen: Soft, Other (I will sounds present) Extremities: Other (Mild to moderate bilateral lower extremity edema) Results 04/08/17 05:26 04/08/17 05:26 Lab Results 04/08/17 04/08/17 05:26 05:26 WBC 13.5 H Hgb 11.7 Hct 36.9 Plt Count 257 Sodium 138 Potassium 4.5 Chloride 97 L Carbon Dioxide 29 BUN 35 H D Creatinine 1.41 H D Glucose 111 H Calcium 8.6 - Imaging and Cardiology Other Results: CT chest reviewed demonstrating small bilateral pleural effusions - EKG Interpretation EKG results cardiology: other (24h telemetry reviewed demonstrating average heart rate 107 bpm, she will fibrillation without other dysrhythmia) Consult Discharge Plan - Plan Referrals: Darwin Bolton MD [Primary Care Provider] -
[2017-04-08] MEDS: *HR* Metoprolol 5 MG/5 ML VIAL IVP SCH (16:19)
--- NOTE | 2017-04-08 19:33 | Electrocardiograph Report ---
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
[2017-04-08] MEDS ORDERED: *HR* Metoprolol 5 MG/5 ML VIAL IVP SCH (19:36)
[2017-04-08] MEDS ORDERED: *HR* HYDROcodone/Acet 5/325 mg TABLET PO PRN (19:36)
[2017-04-08] MEDS ORDERED: Acetaminophen 325 MG TABLET PO PRN (19:36)
[2017-04-08] MEDS ORDERED: *HR* Morphine 2 MG/ML SYRINGE IVP PRN (19:36)
[2017-04-08] MEDS ORDERED: Nitroglycerin 0.4 MG TAB.SUBL SL PRN (19:36)
[2017-04-08] MEDS ORDERED: Naloxone 0.4 MG/ML INJ IVP PRN (19:36)
[2017-04-08] MEDS ORDERED: GuaiFENesin/Dextromethorphan TABLET PO SCH (21:00)
[2017-04-08] MEDS ORDERED: Gabapentin 400 MG CAPSULE PO SCH (21:00)
[2017-04-08 22:45] LABS: Bilirubin,Urine Negative (Negative); Blood,Urine Moderate (Negative); Clarity,Urine Clear (Clear); Color,Urine Yellow (Yellow); Glucose,Urine (UA) Normal (Normal); Ketones,Urine Negative (Negative); Leukocyte Esterase,Urine Negative (Negative); Nitrite,Urine Negative (Negative); Protein,Urine Negative (Neg-Trace); Specific Gravity,Urine 1.018 (1.010-1.025); Urobilinogen,Urine Normal (Normal)
[2017-04-08 22:47] LABS: Bacteria,Urine None Seen per hpf (None-Few); Hyaline Casts,Urine None Seen per lpf (None-Few); Squamous Epithelial Cell,Urine Moderate per lpf (None-Few); WBC,Urine 0-3 per hpf (0-3)
[2017-04-09] MEDS: MethylPREDNISolone 40 MG/ML VIAL IVP SCH ×2 (01:44→08:16)
[2017-04-09] MEDS ORDERED: Cefepime HCl 1,000 MG in Water for inj. (sterile) 10 ML IVP SCH (02:00)
[2017-04-09 03:31] LABS: Basophils % 0.1 %; Hematocrit 33.7 % (35.3-44.9); Hemoglobin 11.2 g/dL (11.5-15.4); Immature Granulocytes % 1.5 % (0-4); Lymphocytes # 0.6 K/mcL (0.6-4.6); Mean Corpuscular HGB Conc 33.2 g/dL (31.6-35.5); Mean Corpuscular Hemoglobin 31.1 pg (28.0-33.3); Mean Corpuscular Volume 93.6 fL (83.0-100.0); Monocytes # 0.6 K/mcL (0.0-1.3); Monocytes % 3.7 %; Neutrophils # 13.7 K/mcL (1.6-8.9); Platelet Count 224 K/mcL (140-400); Red Cell Distribution Width 14.6 % (11.5-14.5); Segmented Neutrophils % 90.7 %
[2017-04-09 03:37] LABS: INR 1.3; Prothrombin Time 13.9 Seconds (9.4-12.1)
[2017-04-09 03:49] LABS: Albumin 3.3 g/dL (3.5-5.0); Albumin/Globulin Ratio 1.3 (1.1-2.2); Bilirubin,Total 0.4 mg/dL (0.2-1.2); Calcium 8.7 mg/dL (8.6-10.8); Globulin 2.6 g/dL (2.4-3.5); Potassium 4.4 mEq/L (3.5-4.5); Total Protein 5.9 g/dL (6.0-8.3)
[2017-04-09] MEDS: Ipratropium/Albuterol Neb 3 ML IH SCH ×2 (03:56→10:38)
[2017-04-09 05:23] VITALS: BP 131/87
[2017-04-09] MEDS: *HR* Heparin 5,000 UNIT/ML VIAL SQ SCH (07:01)
[2017-04-09] MEDS ORDERED: *HR* Dextrose 50 % in Water (Syg) 50 ML SYRINGE ONE (07:44)
[2017-04-09] MEDS ORDERED: *HR* Morphine 2 MG/ML SYRINGE IVP STA ×2 (08:06→08:08)
[2017-04-09] MEDS ORDERED: *HR* Morphine 2 MG/ML SYRINGE ONE ×2 (08:06→08:10)
[2017-04-09] MEDS ORDERED: *HR* LORazepam 2 MG/ML VIAL IVP PRN (08:11)
[2017-04-09] MEDS ORDERED: *HR* Morphine 2 MG/ML SYRINGE IVP PRN (08:12)
[2017-04-09] MEDS ORDERED: Aspirin 81 MG TAB.CHEW PO SCH (09:00)
[2017-04-09] MEDS ORDERED: BuPROPion XL (24 HR) 150 MG TABLET PO SCH (09:00)
[2017-04-09] MEDS ORDERED: Nicotine 14 MG PATCH.TD24 TD SCH (09:00)
--- NOTE | 2017-04-09 11:30 | Event Note ---
Date of Encounter: 04/09/17 Time of Encounter: 08:30 We were asked to see the patient regarding end-of-life care, the patient was actively passing at the time we entered the room and we decided the family needed to have time to grieve. Therefore we did not fill out for full consult. Patient approximately 30 minutes later.
--- NOTE | 2017-04-09 15:41 | Electrocardiograph Report ---
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
[2017-04-09] MEDS ORDERED: Levofloxacin 750 MG/150 ML 750 MG/150 ML BAG IVPB SCH (16:00)
--- NOTE | 2017-04-09 16:56 | Death Note ---
<Stefan De Oliveira - Last Filed: 04/09/17 16:54> Discharge Sum: Summary - Date and Time Date of admission: 04/06/17 21:20 Date of : 04/09/17 Time of : 08:50 - Summary Details: Mrs. Paz 71-year-old female is admitted with sepsis found to have findings of bilateral pneumonia in acute respiratory failure. Blood cultures were drawn which were concerning for MRSA and the patient was placed on vancomycin and Levaquin for antibiotic coverage. At the time of admission she was a high risk patient presenting with hypotension, A. fib RVR, acute on chronic respiratory failure with severe peripheral artery disease, COPD on oxygen at home, hypertension, currently every day tobacco abuser, bilateral carotid artery stenosis status post carotid enterectomy, and status post stents. During her inpatient stay she developed acute kidney injury secondary to hypotension and her vancomycin was discontinued she was switched to Zyvox. Cardiology had evaluated the patient during her inpatient stay and her most recent echo demonstrated hyperdynamic function with an ejection fraction 75% with severe concentric hypertrophy with LVOT obstruction peak gradient of 40mmHG. during inpatient stay she demonstrated clinical decline and on 2016 she was evaluated by nursing staff who identified that she was declining and developed PEA which progressed rapidly into ventricular fibrillation at which time a CODE BLUE was called and CPR was initiated. After 1 cycle of CPR she received 1 dose of epinephrine IV and she regained a normal sinus rhythm with a pulse. She demonstrated respiratory distress and ventricular tachycardia , the patient's family was at bedside and decided that they did not want any further interventions given their mother's condition and requested that she be DNR comfort care. Nursing staff notified that the patient passed and she was evaluated with absent pupillary response to light, negative ocular reflex, absent breath sounds, absent heart sounds and no pulse in either radial, brachial or carotid bilateral. Patient time of documented at 8:50 AM - Additional Data Confirmation of as documented by pronouncing clinician: no pulse, no respirations, no heart sounds, pupils fixed and dilated, other (absent occular reflex) Family: at bedside Attending/PCP notified?: Yes Attending physician: Jarvis Forman Was code activated?: Yes Discharge Sum: Diag - PCOD Probable Cause of : Cardiac arrhythmia Discharge Sum: Prov - Provider Primary care physician: Darwin Bolton MD Consults: 04/07/17 10:00 Consult to Physical Therapy [CONS] Routine Comment: Evaluate, develop and implement POC Reason for Consult: weakness OT [Consult to Occupational Therapy] [CONS] Routine Comment: Evaluate, develop and implement POC Reason for Consult: weakness 04/09/17 08:37 Consult to Palliative Care [CONS] Routine Comment: Consulting Provider: Palliative Care Viri Reason for Consult: change of code status, post CODE BLUE Call Completed: Yes Pronouncing clinician: Stefan De Oliveira <Jarvis Forman - Last Filed: 04/09/17 18:22> Discharge Sum: Summary - Date and Time Date of admission: 04/06/17 21:20 - Additional Data Attending physician: Jarvis Forman Discharge Sum: Prov - Provider Primary care physician: Darwin Bolton MD Consults: 04/07/17 10:00 Consult to Physical Therapy [CONS] Routine Comment: Evaluate, develop and implement POC Reason for Consult: weakness OT [Consult to Occupational Therapy] [CONS] Routine Comment: Evaluate, develop and implement POC Reason for Consult: weakness 04/09/17 08:37 Consult to Palliative Care [CONS] Routine Comment: Consulting Provider: Palliative Care Viri Reason for Consult: change of code status, post CODE BLUE Call Completed: Yes - Attending Attestation COrrection : tobacco user. Cause of : Severe Sepsis/septic shock secondary to healthcare associated pneumonia present upon admission also Staph haemolyticus bacteremia (difficult to differentiate between contamination and true infection as one of the 2 bottles was positive only), Acute renal failure secondary to combination of infection, hypotension/ hypoperfusion and possibly vancomycin Acute COPD exacerbation secondary to sepsis Critical care time spent: 40 minutes I examined this patient and my medical decision-making was reviewed with the Resident Physician. I agree with the documented findings, disposition and treatment plan as described except to the extent set forth below.
== END 2017-04-09 11:48 | disposition expired | DRG 190 ==
LOC: EMEROO 16:43 → 2NENU 16:43 → 2NNU 20:39 → 2NENU 21:19 → 2NNU 04-08 16:00
PROVIDERS: ADMIT Internal Medicine; ATTEND Internal Medicine